=== PATIENT | male | born 1945 | race Caucasian/White ===

== ENCOUNTER 2022-11-16 09:27 | Outpatient (CLI) | payer SELFPAY | END 2022-11-16 23:59 | disposition home or self-care (01) | LOC: VAS 09:27 | DX: Z13.6 Encounter for screening for cardiovascular disorders (principal) ==

== ENCOUNTER 2024-09-11 10:35 | Day surgery (SDC) | payer MEDICARE, BC ==
[2024-09-10 08:31] LABS: APTT 33 SECONDS (22-32); BASOPHILS % (AUTO) 0.5 % (0-1); EOSINOPHILS # (AUTO) 0.1 X10'3 (0-0.9); EOSINOPHILS % (AUTO) 1.9 % (0-6); HEMOGLOBIN 16.1 g/dl (14.0-17.9); INR 1.2 INR; LYMPHOCYTES # (AUTO) 1.1 X10'3 (1.1-4.8); LYMPHOCYTES % (AUTO) 19.2 % (21-51); MEAN CORPUSCULAR HEMOGLOBIN 28.6 PG (27.0-31.0); MEAN CORPUSCULAR HGB CONC 33.6 g/dL (33.0-36.5); MEAN CORPUSCULAR VOLUME 85.1 FL (78-98); MEAN PLATELET VOLUME 8.7 FL (7.4-10.4); MONOCYTES # (AUTO) 0.5 X10'3 (0-0.9); MONOCYTES % (AUTO) 9.1 % (2-12); NEUTROPHILS # (AUTO) 4.1 X10'3 (1.8-7.7); NEUTROPHILS % (AUTO) 69.3 % (42-75); PLATELET COUNT 134 X10'3 (140-440); RED BLOOD COUNT 5.64 X10'6 (4.70-6.10); RED CELL DISTRIBUTION WIDTH 15.4 % (11.5-14.5); WHITE BLOOD COUNT 5.9 X10'3 (4.5-11.0)
[2024-09-10 08:33] LABS: ALBUMIN 3.8 G/DL (3.4-5.0); ANION GAP 6 (8-16); BLOOD UREA NITROGEN 22 MG/DL (7-18); BUN/CREATININE RATIO 16.3 (10.0-20.0); CALCIUM 8.9 MG/DL (8.5-10.1); CHLORIDE 106 MMOL/L (99-107); CHOL/HDL RATIO 2.1 (0.00-4.99); CHOLESTEROL 200 MG/DL (0-200); CREATININE 1.35 MG/DL (0.60-1.10); GLUCOSE 126 MG/DL (70-104); HDL CHOLESTEROL 94 MG/DL (35-60); LDL CHOLESTEROL 82 MG/DL (50-100); POTASSIUM 4.4 MMOL/L (3.5-5.1); SODIUM 139 MMOL/L (135-145); TOTAL CARBON DIOXIDE 27.4 MMOL/L (24-32); TRIGLYCERIDES 38 MG/DL (20-135); eGFR 51 ML/MIN
[2024-09-11] VITALS (8 sets, daily range): BP systolic 91–125; BP diastolic 58–89; PULSE 49–64; RESP 16; TEMP 97.5; O2SAT 93–98
[~2024-09-11] VITALS: Ht 180.3 cm; Wt 94.7 kg
[~2024-09-11 10:35] MED LIST: AMI200T PO; APIX5TAB3 PO; EMPA10TA PO; METO-411 PO; OMEP40CA21 PO; PRAV40TA3 PO; SACU1TAB PO; SPIR25TA5 PO; TAMS-55
[2024-09-11] MEDS ORDERED: normal saline 1000ml 1,000 ML IV SCH (11:50)
[2024-09-11] MEDS ORDERED: fentaNYL/PF 50MCG/1 ML 2ML syringe IV ONE (11:50)
[2024-09-11] MEDS ORDERED: MIDAZolam 1mg/ml 10ml vial IV ONE (11:50)
[2024-09-11] MEDS ORDERED: amiodarone 50MG/ML inj IV ONE (11:55)
[2024-09-11] MEDS ORDERED: atropine 0.1mg/ml 10ml syringe ONE (11:55)
[2024-09-11] MEDS ORDERED: midazolam 1 mg/ML 2ml injection ONE (12:11)
[2024-09-11] MEDS ORDERED: fentaNYL/PF 50MCG/1 ML 2ML syringe ONE (12:11)
--- NOTE | 2024-09-11 13:16 | ELECTROCARDIOGRAPH REPORT ---
[facility] Test Date: 2024-09-11 Test Time: 13:13:56 Pat Name: TAMEKA ROJAS Department: [facility] Patient ID: [id number] Room: Gender: M [employer]: ANNITA : 1945 Requested By: GRACIELA JOHNSON Order Number: [id number] Reading MD: Dr. Stepan Johnson Measurements Intervals [place] Rate: 56 P: 46 [place]: 180 QRS: 88 QRSD: 112 T: 41 QT: 483 QTc: 467 Interpretive Statements Sinus rhythm Atrial premature complex Borderline intraventricular conduction delay Borderline low voltage, extremity leads Minimal ST depression, lateral leads Electronically Signed On 09-11-2024 18:24:[address] Stepan Johnson Please click the below link to view image of tracing.
--- NOTE | 2024-09-11 13:21 | PROCEDURE NOTE CC ---
Procedure Note Providers to CC CC: DIPTI MCCARTNEY MD ~ Description Planned Procedure Cardioversion Indications Symptomatic Atrial Fibrillation Post Operative Dx: Same Type of Anesthesia Moderate Sedation. Description It was confirmed that patient has been taking oral anticoagulation without interruption for at least 4 weeks. The appropriate time-out procedure was performed including proper identification of the patient, physician, procedure, documentation, and there were no safety issues identified. The patient participated actively in this. After sedation was achieved, the patient was placed in the supine position and hands free patches were placed on their chest in the AP-lateral position. 1 synchronized cardioversion was provided at 200 Joules with conversion to normal sinus rhythm. This was confirmed on EKG. Complication: None The patient tolerated the procedure well without complications. GRACIELA MCCARTNEY MD Sep 11, 2024 13:21
== END 2024-09-11 14:15 | disposition home or self-care (01) ==
LOC: SSTAY O 10:35
PROVIDERS: ATTEND Student in an Organized Health Care Education/Training Program
DX: I48.91 Unspecified atrial fibrillation (principal); I11.0 Hypertensive heart disease with heart failure; I50.9 Heart failure, unspecified; I70.0 Atherosclerosis of aorta; Z79.899 Other long term (current) drug therapy
CPT/HCPCS: 36415; 80048; 80061; 83695; 85025; 85610; 85730; 92960; 93005; J2250; J3010; J7030; J0282; J0461